=== PATIENT | male | born 1940 | race Hispanic/Latino ===

== ENCOUNTER → 2021-06-16 | Day surgery (SDC) | payer MEDICARE ==
[~2021-06-16] MED LIST: FENTANYL CITRATE/PF 100MCG/2 ML INJ ONE; LIDOCAINE HCL 1% 2 ML AMP ONE; MIDAZOLAM HCL 2 MG/2 ML VIAL ONE; MULTI-VITAMIN1 EACH PO; OR PHACO EYE KIT ONE; POVIDONE IODINE 5% (OPTH) 30 ML BTL ONE; PREOP PHACO EYE KIT ONE; TOBRAMYCIN/DEXAMETHASONE(OPTH) 3.5 GM TUBE ONE; VIAGRA50 MG PO; ZESTRIL10 MG PO
[2021-06-16 14:50] VITALS: BP 120/74
== END | disposition home or self-care (01) ==
LOC: OR 12:30
PROVIDERS: ATTEND Ophthalmology
DX: H25.11 Age-related nuclear cataract, right eye (principal); I10 Essential (primary) hypertension; K21.9 Gastro-esophageal reflux disease without esophagitis; Z79.899 Other long term (current) drug therapy
CPT/HCPCS: 66984; J2250; J3010; U0002; V2632; J2001

== ENCOUNTER → 2021-07-07 | Day surgery (SDC) | payer MEDICARE ==
[~2021-07-07] MED LIST changes: -FENTANYL CITRATE/PF 100MCG/2 ML INJ ONE; -LIDOCAINE HCL 1% 2 ML AMP ONE; -POVIDONE IODINE 5% (OPTH) 30 ML BTL ONE; -TOBRAMYCIN/DEXAMETHASONE(OPTH) 3.5 GM TUBE ONE
[2021-07-07 15:00] VITALS: BP 116/69
== END | disposition home or self-care (01) ==
LOC: OR 12:55
PROVIDERS: ATTEND Ophthalmology
DX: H25.12 Age-related nuclear cataract, left eye (principal); I10 Essential (primary) hypertension; K21.9 Gastro-esophageal reflux disease without esophagitis; Z01.812 Encounter for preprocedural laboratory examination; Z20.822 Contact with and (suspected) exposure to COVID-19; Z79.899 Other long term (current) drug therapy
CPT/HCPCS: 66984; J2250; U0002; V2632

== ENCOUNTER 2024-05-02 22:59 | Inpatient (IN) | payer MEDICARE ==
[~2024-05-02] VITALS: Ht 162.6 cm; Wt 70.3 kg
[~2024-05-02 22:59] MED LIST changes: -MIDAZOLAM HCL 2 MG/2 ML VIAL ONE; -OR PHACO EYE KIT ONE; -PREOP PHACO EYE KIT ONE
[2024-05-03] VITALS (9 sets, daily range): BP systolic 112–139; BP diastolic 68–91; PULSE 53–116; RESP 16–20; TEMP 98.2–100.4; O2SAT 92–100
[2024-05-03 00:22] LABS: BASOPHILS % 0.5 % (0.0-1.0); HEMATOCRIT 40.6 % (38.2-49.6); HEMOGLOBIN 14.3 g/dL (14.0-18.0); LYMPHOCYTES # (AUTO) 0.3 (1.0-3.2); LYMPHOCYTES % 3.5 % (18.0-39.1); MEAN CORPUSCULAR HEMOGLOBIN 33.6 pg (28-32); MEAN CORPUSCULAR HGB CONC 35.2 g/dL (31-35); MEAN CORPUSCULAR VOLUME 95.3 fL (81-99); MONOCYTES # (AUTO) 0.2 (0.2-0.8); MONOCYTES % 2.4 % (4.4-11.3); NEUTROPHILS # (AUTO) 7.7 (2.1-6.9); PLATELET COUNT 65 x10e3/uL (140-360); RED BLOOD COUNT 4.26 x10e6/uL (4.3-5.7); RED CELL DISTRIBUTION WIDTH 13.4 % (11.7-14.4); WHITE BLOOD COUNT 8.32 x10e3/uL (4.8-10.8)
[2024-05-03 00:36] LABS: ALANINE AMINOTRANSFERASE 110 IU/L (0-55); ALBUMIN 3.1 g/dL (3.5-5.0); ALBUMIN/GLOBULIN RATIO 0.8 (0.8-2.0); ALKALINE PHOSPHATASE 123 IU/L (40-150); ANION GAP 18.2 mmol/L (8-16); BILIRUBIN,TOTAL 1.8 mg/dL (0.2-1.2); BLOOD UREA NITROGEN 29 mg/dL (7-26); BUN/CREATININE RATIO 22 (6-25); CALCIUM 10.3 mg/dL (8.4-10.2); CARBON DIOXIDE 22 mmol/L (22-29); CHLORIDE 90 mmol/L (98-107); CREATINE KINASE 529 IU/L (30-200); EST GLOMERULAR FILTRATION RATE 55 ML/MIN (>=60); GLUCOSE 116 mg/dL (74-118); SODIUM 127 mmol/L (136-145); TOTAL PROTEIN 7.2 g/dL (6.5-8.1)
[2024-05-03 00:40] LABS: POTASSIUM 3.2 mmol/L (3.5-5.1)
[2024-05-03 01:05] LABS: TROPONIN I < 0.05 ng/mL (0.0-0.40)
[2024-05-03] MEDS ORDERED: ONDANSETRON HCL INJ 2MG/ML 2ML 2 MG/ML VIAL IV PRN ×2 (04:15→10:15)
[2024-05-03] MEDS: LIDOCAINE 1% W/EPINEPHRINE 20 ML VIAL INJ ONE (05:03)
[2024-05-03] MEDS: CEPHALEXIN 500 MG CAP PO SCH (05:09)
[2024-05-03] MEDS: SODIUM CHLORIDE 0.9% 1000ML 1,000 ML IV ONE (05:10)
[2024-05-03] MEDS ORDERED: IOPAMIDOL 370 MG/ML 100 ML INFUS..BTL INJ ONE (10:54)
[2024-05-03 10:56] LABS: TROPONIN I 1.072 ng/mL (0-0.300)
[2024-05-03 17:26] LABS: TROPONIN I 0.02 ng/mL (0-0.300)
[2024-05-04] VITALS (12 sets, daily range): BP systolic 77–133; BP diastolic 55–78; PULSE 91–126; RESP 16–20; TEMP 98.2–99.5; O2SAT 90–100
[2024-05-04 06:04] LABS: BASOPHILS # (AUTO) 0.1 (0.0-0.1); BASOPHILS % 1.2 % (0.0-1.0); HEMATOCRIT 40.2 % (38.2-49.6); HEMOGLOBIN 13.8 g/dL (14.0-18.0); LYMPHOCYTES # (AUTO) 0.3 (1.0-3.2); LYMPHOCYTES % 4.6 % (18.0-39.1); MEAN CORPUSCULAR HEMOGLOBIN 33.1 pg (28-32); MEAN CORPUSCULAR HGB CONC 34.3 g/dL (31-35); MEAN CORPUSCULAR VOLUME 96.4 fL (81-99); MONOCYTES # (AUTO) 0.2 (0.2-0.8); MONOCYTES % 2.3 % (4.4-11.3); NEUTROPHILS # (AUTO) 6.2 (2.1-6.9); RED BLOOD COUNT 4.17 x10e6/uL (4.3-5.7); RED CELL DISTRIBUTION WIDTH 13.5 % (11.7-14.4); WHITE BLOOD COUNT 6.81 x10e3/uL (4.8-10.8)
[2024-05-04 06:08] LABS: PLATELET COUNT 37 x10e3/uL (140-360)
[2024-05-04 06:47] LABS: ALBUMIN 2.4 g/dL (3.5-5.0); ALBUMIN/GLOBULIN RATIO 0.8 (0.8-2.0); ANION GAP 14.1 mmol/L (8-16); BILIRUBIN,TOTAL 2.3 mg/dL (0.2-1.2); CALCIUM 8.3 mg/dL (8.4-10.2); CREATININE, SERUM 0.78 mg/dL (0.72-1.25); TOTAL PROTEIN 5.5 g/dL (6.5-8.1)
[2024-05-04 06:53] LABS: POTASSIUM 3.1 mmol/L (3.5-5.1)
[2024-05-04 07:09] LABS: CHOL/HDL RATIO 5.8 (3.9-4.7)
[2024-05-04 07:16] LABS: TROPONIN I 0.035 ng/mL (0-0.300)
[2024-05-04] MEDS: TRAMADOL HCL 50 MG TAB PO SCH (09:00)
[2024-05-04 09:43] LABS: BAND NEUTROPHILS % (MANUAL) 11 %; BASOPHILS % (MANUAL) 1 % (0-1.5); LYMPHOCYTES % (MANUAL) 5 % (19-48); METAMYELOCYTES % (MANUAL) 1 % (0-0); MONOCYTES % (MANUAL) 1 % (3.4-9.0); MYELOCYTES % (MANUAL) 1 % (0-0); NEUTROPHILS % (MANUAL) 80 % (40-74); PLATELET ESTIMATE MARKEDLY DECREASED; PLATELET MORPHOLOGY COMMENT NORMAL; RBC MORPHOLOGY COMMENT NORMAL
[2024-05-04] MEDS: ACETAMINOPHEN 325 MG TAB PO PRN (09:43)
[2024-05-04] MEDS: MULTIVITAMINS- 12 INJECTION 10 ML, FOLIC ACID MDV 1 MG, THIAMINE HCL INJ 100 MG in SODI... IV SCH (11:13)
[2024-05-04] MEDS: POTASSIUM CHLORIDE 10MEQ EA PO SCH (11:14)
[2024-05-04] MEDS: CHLORDIAZEPOXIDE HCL 10 MG CAP PO SCH (13:45)
[2024-05-04] MEDS: SODIUM CHLORIDE 0.9% 500ML 500 ML IV ONE (15:22)
[2024-05-04] MEDS: MIDODRINE HCL 5 MG TABLET PO SCH (16:48)
[2024-05-04] MEDS: SODIUM CHLORIDE 452MG TAB PO SCH (16:48)
[2024-05-04] MEDS: LORAZEPAM INJ 2 MG/ML VIAL IV ONE (18:42)
[2024-05-04] MEDS: FAMOTIDINE 20 MG/2 ML VIAL IV SCH (18:43)
[2024-05-04] MEDS: CHLORDIAZEPOXIDE HCL 10 MG CAP PO PRN (21:35)
[2024-05-05] VITALS (9 sets, daily range): BP systolic 72–112; BP diastolic 54–78; PULSE 96–122; RESP 18–24; TEMP 98.3–99.8; O2SAT 94–96
[2024-05-05] MEDS: LORAZEPAM INJ 2 MG/ML VIAL IV PRN (04:10)
[2024-05-05 08:09] LABS: BASOPHILS % 0.3 % (0.0-1.0); EOSINOPHILS % 0.2 % (0.0-6.0); HEMATOCRIT 44.3 % (38.2-49.6); HEMOGLOBIN 14.8 g/dL (14.0-18.0); LYMPHOCYTES # (AUTO) 0.5 (1.0-3.2); LYMPHOCYTES % 5.4 % (18.0-39.1); MEAN CORPUSCULAR HEMOGLOBIN 32.7 pg (28-32); MEAN CORPUSCULAR HGB CONC 33.4 g/dL (31-35); MEAN CORPUSCULAR VOLUME 97.8 fL (81-99); MONOCYTES # (AUTO) 0.2 (0.2-0.8); NEUTROPHILS # (AUTO) 8.1 (2.1-6.9); NEUTROPHILS % 90.8 % (38.7-80.0); RED BLOOD COUNT 4.53 x10e6/uL (4.3-5.7); RED CELL DISTRIBUTION WIDTH 14.4 % (11.7-14.4)
[2024-05-05 08:22] LABS: PLATELET COUNT 27 x10e3/uL (140-360)
[2024-05-05 08:23] LABS: INR 1.19; PROTHROMBIN TIME 15.7 seconds (11.9-14.5)
[2024-05-05 08:28] LABS: ALBUMIN 2.2 g/dL (3.5-5.0); ALBUMIN/GLOBULIN RATIO 0.7 (0.8-2.0); ANION GAP 13.1 mmol/L (8-16); BILIRUBIN,TOTAL 2.9 mg/dL (0.2-1.2); CALCIUM 8.1 mg/dL (8.4-10.2); CREATININE, SERUM 1.14 mg/dL (0.72-1.25); POTASSIUM 4.1 mmol/L (3.5-5.1); TOTAL PROTEIN 5.4 g/dL (6.5-8.1)
[2024-05-05] MEDS: THIAMINE HCL INJ 100 MG/ML 2ML VIAL IV SCH (08:57)
[2024-05-05 10:32] LABS: BAND NEUTROPHILS % (MANUAL) 5 %; LYMPHOCYTES % (MANUAL) 7 % (19-48); NEUTROPHILS % (MANUAL) 87 % (40-74); REACTIVE LYMPHOCYTES 1
[2024-05-05 10:33] LABS: PLATELET ESTIMATE MARKEDLY DECREASED; PLATELET MORPHOLOGY COMMENT NORMAL
[2024-05-05] MEDS: MIDODRINE HCL 5 MG TABLET PO SCH (11:23)
[2024-05-06] VITALS (11 sets, daily range): BP systolic 92–116; BP diastolic 59–95; PULSE 95–138; RESP 18–22; TEMP 98–99.5; O2SAT 94–100
[2024-05-06 06:21] LABS: BASOPHILS # (AUTO) 0.1 (0.0-0.1); BASOPHILS % 0.7 % (0.0-1.0); EOSINOPHILS % 0.2 % (0.0-6.0); HEMATOCRIT 42.9 % (38.2-49.6); HEMOGLOBIN 14.7 g/dL (14.0-18.0); LYMPHOCYTES # (AUTO) 0.8 (1.0-3.2); LYMPHOCYTES % 7.4 % (18.0-39.1); MEAN CORPUSCULAR HEMOGLOBIN 33.1 pg (28-32); MEAN CORPUSCULAR HGB CONC 34.3 g/dL (31-35); MEAN CORPUSCULAR VOLUME 96.6 fL (81-99); MONOCYTES # (AUTO) 0.2 (0.2-0.8); MONOCYTES % 2.2 % (4.4-11.3); NEUTROPHILS # (AUTO) 8.9 (2.1-6.9); NEUTROPHILS % 88.6 % (38.7-80.0); RED BLOOD COUNT 4.44 x10e6/uL (4.3-5.7); RED CELL DISTRIBUTION WIDTH 14.6 % (11.7-14.4); WHITE BLOOD COUNT 10.09 x10e3/uL (4.8-10.8)
[2024-05-06 06:25] LABS: PLATELET COUNT 25 x10e3/uL (140-360)
[2024-05-06 06:35] LABS: ALBUMIN/GLOBULIN RATIO 0.6 (0.8-2.0); ANION GAP 15.2 mmol/L (8-16); BILIRUBIN,TOTAL 3.4 mg/dL (0.2-1.2); CALCIUM 7.7 mg/dL (8.4-10.2); POTASSIUM 4.2 mmol/L (3.5-5.1); TOTAL PROTEIN 5.1 g/dL (6.5-8.1)
[2024-05-06 07:04] LABS: CREATININE, SERUM 1.98 mg/dL (0.72-1.25)
[2024-05-06] MEDS: LACTULOSE SYRUP 20 GM/30 ML UDC PO SCH (09:19)
[2024-05-06 10:39] LABS: BAND NEUTROPHILS % (MANUAL) 9 %; LYMPHOCYTES % (MANUAL) 4 % (19-48); MONOCYTES % (MANUAL) 1 % (3.4-9.0); NEUTROPHILS % (MANUAL) 84 % (40-74); PLATELET ESTIMATE MARKEDLY DECREASED; PLATELET MORPHOLOGY COMMENT NORMAL; REACTIVE LYMPHOCYTES 2
[2024-05-06 10:40] LABS: ANISOCYTOSIS SLIGHT
[2024-05-06] MEDS: ENOXAPARIN SOD INJ 40 MG/0.4 ML SYR SC SCH (17:06)
[2024-05-06] MEDS ORDERED: SODIUM CHLORIDE 0.9% 1000ML 1,000 ML IV SCH (19:30)
[2024-05-06] MEDS: SODIUM CHLORIDE 0.9% 1000ML 1,000 ML IV SCH (20:59)
[2024-05-07] VITALS (9 sets, daily range): BP systolic 93–118; BP diastolic 58–91; PULSE 97–136; RESP 18–22; TEMP 97.7–99; O2SAT 91–99
[2024-05-07 06:45] LABS: BASOPHILS # (AUTO) 0.1 (0.0-0.1); BASOPHILS % 0.6 % (0.0-1.0); EOSINOPHILS % 0.2 % (0.0-6.0); HEMATOCRIT 41.9 % (38.2-49.6); HEMOGLOBIN 14.4 g/dL (14.0-18.0); LYMPHOCYTES # (AUTO) 1.2 (1.0-3.2); MEAN CORPUSCULAR HEMOGLOBIN 33.3 pg (28-32); MEAN CORPUSCULAR HGB CONC 34.4 g/dL (31-35); MONOCYTES # (AUTO) 0.3 (0.2-0.8); MONOCYTES % 2.4 % (4.4-11.3); NEUTROPHILS % 84.9 % (38.7-80.0); RED BLOOD COUNT 4.32 x10e6/uL (4.3-5.7); RED CELL DISTRIBUTION WIDTH 15.6 % (11.7-14.4); WHITE BLOOD COUNT 10.58 x10e3/uL (4.8-10.8)
[2024-05-07 06:53] LABS: ALBUMIN 1.6 g/dL (3.5-5.0); ALBUMIN/GLOBULIN RATIO 0.6 (0.8-2.0); ANION GAP 16.3 mmol/L (8-16); BILIRUBIN,TOTAL 3.9 mg/dL (0.2-1.2); CALCIUM 7.4 mg/dL (8.4-10.2); CREATININE, SERUM 2.99 mg/dL (0.72-1.25); PLATELET COUNT 28 x10e3/uL (140-360); POTASSIUM 4.3 mmol/L (3.5-5.1); TOTAL PROTEIN 4.3 g/dL (6.5-8.1)
[2024-05-07 08:58] LABS: BAND NEUTROPHILS % (MANUAL) 3 %; LYMPHOCYTES % (MANUAL) 6 % (19-48); MONOCYTES % (MANUAL) 2 % (3.4-9.0); NEUTROPHILS % (MANUAL) 89 % (40-74)
[2024-05-07 09:00] LABS: PLATELET ESTIMATE MARKEDLY DECREASED; PLATELET MORPHOLOGY COMMENT NORMAL; RBC MORPHOLOGY COMMENT NORMAL
[2024-05-07] MEDS: RIFAXIMIN 550 MG TABLET PO SCH (09:00)
[2024-05-07 09:56] LABS: HEPATITIS B SURFACE AG (P) Negative; HEPATITIS C ANTIBODY Non Reactive
[2024-05-07] MEDS: DEXTROSE 5%/0.9% SOD CHL 1,000 ML IV SCH (12:32)
[2024-05-07 13:24] LABS: BILIRUBIN,URINE SMALL (NEGATIVE); CLARITY,URINE CLOUDY (CLEAR); COLOR,URINE AMBER (YELLOW); GLUCOSE, URINE NEGATIVE (NEGATIVE); KETONES,URINE NEGATIVE (NEGATIVE); LEUKOCYTE ESTERASE ,URINE NEGATIVE (NEGATIVE); NITRITE,URINE NEGATIVE (NEGATIVE); PH,URINE 5.5 (5 - 7); PROTEIN,URINE DIPSTICK 2+ (NEGATIVE); URINE UROBILINOGEN 0.2 mg/dL (0.2 - 1)
[2024-05-07 13:26] LABS: BACTERIA,URINE MANY /HPF; EPITHELIAL CELLS,URINE MODERATE /LPF
[2024-05-07 13:27] LABS: WBC,URINE (MAN) 0-5 /HPF (0-5)
[2024-05-07 14:38] LABS: CREATININE,URINE RANDOM 102.55 mg/dL (63-166); TOTAL PROTEIN, URINE 57.1 mg/dL (1-14)
[2024-05-07 14:40] LABS: SODIUM,URINE < 20 mmol/L
[2024-05-07 17:33] LABS: ABG PCO2 24 mmHg (35-45); ABG PH 7.35 (7.35-7.45)
[2024-05-07 17:34] LABS: ABG HCO3 14 mmol/L (22-26); ABG PO2 77 mmHg (80-105); ABG TCO2 14
[2024-05-07] MEDS ORDERED: SODIUM BICARBONATE 8.4% VIAL 50 ML in DEXTROSE 5%/0.45% SOD CHL 1,000 ML IV SCH (18:30)
[2024-05-07] MEDS: SODIUM BICARBONATE 8.4% VIAL 50 ML in DEXTROSE 5%/0.45% SOD CHL 1,000 ML IV SCH (21:18)
[2024-05-08] VITALS (9 sets, daily range): BP systolic 89–124; BP diastolic 50–78; PULSE 106–118; RESP 15–22; TEMP 97.4–98.7; O2SAT 93–96
[2024-05-08 06:27] LABS: BASOPHILS # (AUTO) 0.1 (0.0-0.1); BASOPHILS % 0.8 % (0.0-1.0); EOSINOPHILS % 0.3 % (0.0-6.0); HEMATOCRIT 40.8 % (38.2-49.6); HEMOGLOBIN 14.1 g/dL (14.0-18.0); LYMPHOCYTES % 16.3 % (18.0-39.1); MEAN CORPUSCULAR HEMOGLOBIN 33.2 pg (28-32); MEAN CORPUSCULAR HGB CONC 34.6 g/dL (31-35); MONOCYTES # (AUTO) 0.3 (0.2-0.8); MONOCYTES % 2.8 % (4.4-11.3); NEUTROPHILS # (AUTO) 9.4 (2.1-6.9); NEUTROPHILS % 78.4 % (38.7-80.0); PLATELET COUNT 33 x10e3/uL (140-360); RED BLOOD COUNT 4.25 x10e6/uL (4.3-5.7); RED CELL DISTRIBUTION WIDTH 16.5 % (11.7-14.4)
[2024-05-08 07:05] LABS: ALBUMIN 1.7 g/dL (3.5-5.0); ALBUMIN/GLOBULIN RATIO 0.6 (0.8-2.0); ANION GAP 15.2 mmol/L (8-16); BILIRUBIN,TOTAL 3.7 mg/dL (0.2-1.2); CALCIUM 7.5 mg/dL (8.4-10.2); CREATININE, SERUM 3.66 mg/dL (0.72-1.25); POTASSIUM 4.2 mmol/L (3.5-5.1); TOTAL PROTEIN 4.6 g/dL (6.5-8.1)
[2024-05-08 09:03] LABS: LYMPHOCYTES % (MANUAL) 10 % (19-48); MONOCYTES % (MANUAL) 1 % (3.4-9.0); NEUTROPHILS % (MANUAL) 89 % (40-74)
[2024-05-08 09:08] LABS: PLATELET ESTIMATE MARKEDLY DECREASED; PLATELET MORPHOLOGY COMMENT FEW LARGE
[2024-05-08 09:09] LABS: RBC MORPHOLOGY COMMENT NORMAL
[2024-05-08] MEDS: OCTREOTIDE ACETATE 500 MCG/ML VIAL SQ SCH (18:01)
[2024-05-08] MEDS: MIDODRINE HCL 5 MG TABLET PO SCH (18:05)
[2024-05-08] MEDS: SODIUM BICARBONATE 8.4% VIAL 50 ML in DEXTROSE 5%/0.45% SOD CHL 1,000 ML IV SCH (22:27)
[2024-05-09] VITALS (12 sets, daily range): BP systolic 99–139; BP diastolic 65–85; PULSE 90–122; RESP 16–22; TEMP 97.6–100.5; O2SAT 93–98
[2024-05-09 06:04] LABS: BASOPHILS # (AUTO) 0.1 (0.0-0.1); BASOPHILS % 0.5 % (0.0-1.0); EOSINOPHILS # (AUTO) 0.1 (0.0-0.4); EOSINOPHILS % 0.7 % (0.0-6.0); HEMATOCRIT 37.5 % (38.2-49.6); LYMPHOCYTES % 19.1 % (18.0-39.1); MEAN CORPUSCULAR HEMOGLOBIN 32.7 pg (28-32); MEAN CORPUSCULAR HGB CONC 34.7 g/dL (31-35); MEAN CORPUSCULAR VOLUME 94.5 fL (81-99); MONOCYTES # (AUTO) 0.3 (0.2-0.8); MONOCYTES % 2.5 % (4.4-11.3); NEUTROPHILS # (AUTO) 7.9 (2.1-6.9); RED BLOOD COUNT 3.97 x10e6/uL (4.3-5.7); RED CELL DISTRIBUTION WIDTH 16.1 % (11.7-14.4); WHITE BLOOD COUNT 10.45 x10e3/uL (4.8-10.8)
[2024-05-09 06:13] LABS: PLATELET COUNT 37 x10e3/uL (140-360)
[2024-05-09 06:27] LABS: ALBUMIN 1.8 g/dL (3.5-5.0); ALBUMIN/GLOBULIN RATIO 0.6 (0.8-2.0); ANION GAP 16.4 mmol/L (8-16); BILIRUBIN,TOTAL 4.1 mg/dL (0.2-1.2); CALCIUM 7.7 mg/dL (8.4-10.2); CREATININE, SERUM 4.48 mg/dL (0.72-1.25); POTASSIUM 4.4 mmol/L (3.5-5.1); TOTAL PROTEIN 4.9 g/dL (6.5-8.1)
[2024-05-09] MEDS ORDERED: CHLORDIAZEPOXIDE HCL 10 MG CAP PO PRN (08:00)
[2024-05-09 08:36] LABS: LYMPHOCYTES % (MANUAL) 2 % (19-48); MONOCYTES % (MANUAL) 1 % (3.4-9.0); NEUTROPHILS % (MANUAL) 97 % (40-74); PLATELET ESTIMATE MARKEDLY DECREASED; PLATELET MORPHOLOGY COMMENT NORMAL; RBC MORPHOLOGY COMMENT NORMAL
[2024-05-09] MEDS ORDERED: HEPARIN SOD (PORCINE) 1000 UNIT/ML SDV ONE (10:17)
[2024-05-09] MEDS ORDERED: DEXTROSE 5%/0.45% SOD CHL 1,000 ML IV ONE (11:40)
[2024-05-09] MEDS: SODIUM CHLORIDE 0.9% 1000ML 0 ML ONE (15:35)
[2024-05-09] MEDS ORDERED: MANNITOL 25% 12.5GM/50 ML VIAL IV PRN (15:45)
[2024-05-09] MEDS ORDERED: SODIUM CHLORIDE 0.9% 1000ML 2,000 ML IV PRN (15:45)
[2024-05-09] MEDS ORDERED: HEPARIN SOD (PORCINE) 1000 UNIT/ML SDV IV PRN (15:45)
[2024-05-10] VITALS (9 sets, daily range): BP systolic 107–135; BP diastolic 59–88; PULSE 92–113; RESP 16–21; TEMP 97.9–99.5; O2SAT 93–100
[2024-05-10 06:13] LABS: BASOPHILS % 0.5 % (0.0-1.0); EOSINOPHILS # (AUTO) 0.1 (0.0-0.4); EOSINOPHILS % 0.7 % (0.0-6.0); HEMATOCRIT 34.7 % (38.2-49.6); HEMOGLOBIN 11.8 g/dL (14.0-18.0); LYMPHOCYTES # (AUTO) 1.7 (1.0-3.2); MEAN CORPUSCULAR HEMOGLOBIN 32.7 pg (28-32); MEAN CORPUSCULAR VOLUME 96.1 fL (81-99); MONOCYTES # (AUTO) 0.3 (0.2-0.8); MONOCYTES % 3.3 % (4.4-11.3); NEUTROPHILS # (AUTO) 6.4 (2.1-6.9); NEUTROPHILS % 74.6 % (38.7-80.0); RED BLOOD COUNT 3.61 x10e6/uL (4.3-5.7); RED CELL DISTRIBUTION WIDTH 16.5 % (11.7-14.4)
[2024-05-10 06:30] LABS: PLATELET COUNT 44 x10e3/uL (140-360)
[2024-05-10 06:36] LABS: ANION GAP 13.3 mmol/L (8-16); CALCIUM 7.7 mg/dL (8.4-10.2); CREATININE, SERUM 3.6 mg/dL (0.72-1.25); POTASSIUM 4.3 mmol/L (3.5-5.1)
[2024-05-10 09:40] LABS: LYMPHOCYTES % (MANUAL) 17 % (19-48); MONOCYTES % (MANUAL) 3 % (3.4-9.0); NEUTROPHILS % (MANUAL) 80 % (40-74); PLATELET ESTIMATE MARKEDLY DECREASED; PLATELET MORPHOLOGY COMMENT NORMAL; RBC MORPHOLOGY COMMENT NORMAL
[2024-05-10] MEDS: TRAMADOL HCL 50 MG TAB PO PRN (10:22)
[2024-05-10] MEDS ORDERED: HEPARIN SOD (PORCINE) 1000 UNIT/ML SDV IV PRN (15:15)
[2024-05-10] MEDS ORDERED: SODIUM CHLORIDE 0.9% 1000ML 2,000 ML IV PRN (15:15)
[2024-05-10] MEDS: DEXTROSE 5%/0.9% SOD CHL 1,000 ML IV ONE (18:38)
[2024-05-11] VITALS (11 sets, daily range): BP systolic 110–142; BP diastolic 67–97; PULSE 82–95; RESP 16–20; TEMP 97.9–99.5; O2SAT 95–100
[2024-05-11 06:06] LABS: BASOPHILS % 0.5 % (0.0-1.0); EOSINOPHILS # (AUTO) 0.1 (0.0-0.4); EOSINOPHILS % 1.1 % (0.0-6.0); HEMOGLOBIN 11.2 g/dL (14.0-18.0); LYMPHOCYTES # (AUTO) 1.8 (1.0-3.2); LYMPHOCYTES % 21.6 % (18.0-39.1); MEAN CORPUSCULAR HEMOGLOBIN 32.9 pg (28-32); MEAN CORPUSCULAR HGB CONC 33.9 g/dL (31-35); MEAN CORPUSCULAR VOLUME 97.1 fL (81-99); MONOCYTES # (AUTO) 0.2 (0.2-0.8); MONOCYTES % 2.7 % (4.4-11.3); NEUTROPHILS % 73.2 % (38.7-80.0); RED CELL DISTRIBUTION WIDTH 16.7 % (11.7-14.4); WHITE BLOOD COUNT 8.15 x10e3/uL (4.8-10.8)
[2024-05-11 06:15] LABS: PLATELET COUNT 48 x10e3/uL (140-360)
[2024-05-11 06:48] LABS: ALBUMIN 1.6 g/dL (3.5-5.0); ALBUMIN/GLOBULIN RATIO 0.5 (0.8-2.0); BILIRUBIN,TOTAL 4.2 mg/dL (0.2-1.2); CALCIUM 7.9 mg/dL (8.4-10.2); CREATININE, SERUM 2.37 mg/dL (0.72-1.25); TOTAL PROTEIN 4.6 g/dL (6.5-8.1)
[2024-05-11 08:18] LABS: BAND NEUTROPHILS % (MANUAL) 2 %; MONOCYTES % (MANUAL) 1 % (3.4-9.0); NEUTROPHILS % (MANUAL) 97 % (40-74)
[2024-05-11 08:19] LABS: PLATELET ESTIMATE MARKEDLY DECREASED; PLATELET MORPHOLOGY COMMENT NORMAL; RBC MORPHOLOGY COMMENT NORMAL
[2024-05-11] MEDS ORDERED: HEPARIN 25,000 UNIT/D5W 250ML 25,000 UNIT in DEXTROSE 5% 250ML 250 ML IV SCH (11:45)
[2024-05-11] MEDS ORDERED: HEPARIN SOD/DEXTROSE 5% 25000 UNIT/250 ML BAG IV SCH (12:15)
[2024-05-11 12:54] LABS: INR 1.34; PROTHROMBIN TIME 17.3 seconds (11.9-14.5)
[2024-05-11] MEDS: MUPIROCIN 2% OINT 22 GM TUBE TOP SCH (13:56)
[2024-05-11] MEDS: HEPARIN SOD (PORCINE) 1000 UNIT/ML SDV IV ONE (14:18)
[2024-05-11] MEDS: HEPARIN 25,000 UNIT/D5W 250ML 250 ML IV SCH (14:21)
[2024-05-11] MEDS ORDERED: BISACODYL 5 MG TAB EC PO ONE ×2 (18:15→18:45)
[2024-05-11] MEDS ORDERED: CITRATE OF MAGNESIA 300ML BOTTLE PO ONE (23:00)
[2024-05-12] VITALS (8 sets, daily range): BP systolic 123–144; BP diastolic 79–97; PULSE 78–106; RESP 16–20; TEMP 97.8–98.6; O2SAT 95–100
[2024-05-12] MEDS ORDERED: CITRATE OF MAGNESIA 300ML BOTTLE PO ONE (05:00)
[2024-05-12] MEDS: HEPARIN 25,000 UNIT/D5W 250ML 250 ML IV SCH (06:33)
[2024-05-12 06:58] LABS: BASOPHILS % 0.4 % (0.0-1.0); EOSINOPHILS # (AUTO) 0.1 (0.0-0.4); EOSINOPHILS % 0.6 % (0.0-6.0); HEMOGLOBIN 10.4 g/dL (14.0-18.0); LYMPHOCYTES % 24.5 % (18.0-39.1); MEAN CORPUSCULAR HEMOGLOBIN 33.1 pg (28-32); MEAN CORPUSCULAR HGB CONC 34.7 g/dL (31-35); MEAN CORPUSCULAR VOLUME 95.5 fL (81-99); MONOCYTES # (AUTO) 0.4 (0.2-0.8); MONOCYTES % 4.8 % (4.4-11.3); NEUTROPHILS # (AUTO) 5.7 (2.1-6.9); NEUTROPHILS % 69.1 % (38.7-80.0); PLATELET COUNT 62 x10e3/uL (140-360); RED BLOOD COUNT 3.14 x10e6/uL (4.3-5.7); RED CELL DISTRIBUTION WIDTH 16.6 % (11.7-14.4); WHITE BLOOD COUNT 8.17 x10e3/uL (4.8-10.8)
[2024-05-12 07:48] LABS: ANION GAP 11.7 mmol/L (8-16); CALCIUM 7.7 mg/dL (8.4-10.2); CREATININE, SERUM 2.68 mg/dL (0.72-1.25); POTASSIUM 3.7 mmol/L (3.5-5.1)
[2024-05-12 09:05] LABS: BAND NEUTROPHILS % (MANUAL) 1 %; BASOPHILS % (MANUAL) 1 % (0-1.5); EOSINOPHILS % (MANUAL) 1 % (0-7); LYMPHOCYTES % (MANUAL) 12 % (19-48); MONOCYTES % (MANUAL) 4 % (3.4-9.0); NEUTROPHILS % (MANUAL) 81 % (40-74); PLATELET ESTIMATE MODERATELY DECREASED; PLATELET MORPHOLOGY COMMENT NORMAL; RBC MORPHOLOGY COMMENT NORMAL
[2024-05-13] VITALS (9 sets, daily range): BP systolic 128–162; BP diastolic 75–87; PULSE 78–92; RESP 16–20; TEMP 97.8–99.2; O2SAT 92–100
[2024-05-13 06:03] LABS: BASOPHILS % 0.3 % (0.0-1.0); EOSINOPHILS % 0.4 % (0.0-6.0); HEMATOCRIT 35.5 % (38.2-49.6); HEMOGLOBIN 11.9 g/dL (14.0-18.0); LYMPHOCYTES % 26.4 % (18.0-39.1); MEAN CORPUSCULAR HEMOGLOBIN 32.2 pg (28-32); MEAN CORPUSCULAR HGB CONC 33.5 g/dL (31-35); MEAN CORPUSCULAR VOLUME 95.9 fL (81-99); MONOCYTES # (AUTO) 0.4 (0.2-0.8); PLATELET COUNT 74 x10e3/uL (140-360); RED CELL DISTRIBUTION WIDTH 16.2 % (11.7-14.4); WHITE BLOOD COUNT 7.43 x10e3/uL (4.8-10.8)
[2024-05-13 14:10] LABS: ANION GAP 12.7 mmol/L (8-16); CALCIUM 8.3 mg/dL (8.4-10.2); CREATININE, SERUM 1.8 mg/dL (0.72-1.25); POTASSIUM 3.7 mmol/L (3.5-5.1)
[2024-05-14] VITALS (11 sets, daily range): BP systolic 116–150; BP diastolic 68–94; PULSE 73–97; RESP 16–19; TEMP 97.8–99; O2SAT 95–100
[2024-05-14 06:01] LABS: BASOPHILS % 0.4 % (0.0-1.0); EOSINOPHILS % 0.3 % (0.0-6.0); HEMATOCRIT 32.2 % (38.2-49.6); HEMOGLOBIN 10.8 g/dL (14.0-18.0); LYMPHOCYTES # (AUTO) 2.3 (1.0-3.2); LYMPHOCYTES % 29.8 % (18.0-39.1); MEAN CORPUSCULAR HGB CONC 33.5 g/dL (31-35); MEAN CORPUSCULAR VOLUME 95.5 fL (81-99); MONOCYTES # (AUTO) 0.5 (0.2-0.8); MONOCYTES % 6.3 % (4.4-11.3); NEUTROPHILS # (AUTO) 4.7 (2.1-6.9); NEUTROPHILS % 62.4 % (38.7-80.0); PLATELET COUNT 88 x10e3/uL (140-360); RED BLOOD COUNT 3.37 x10e6/uL (4.3-5.7); RED CELL DISTRIBUTION WIDTH 16.3 % (11.7-14.4); WHITE BLOOD COUNT 7.58 x10e3/uL (4.8-10.8)
[2024-05-14 06:09] LABS: ALBUMIN 1.7 g/dL (3.5-5.0); ALBUMIN/GLOBULIN RATIO 0.4 (0.8-2.0); ANION GAP 15.1 mmol/L (8-16); BILIRUBIN,TOTAL 4.7 mg/dL (0.2-1.2); CALCIUM 8.1 mg/dL (8.4-10.2); CREATININE, SERUM 1.99 mg/dL (0.72-1.25)
[2024-05-14 06:17] LABS: POTASSIUM 3.1 mmol/L (3.5-5.1)
[2024-05-14 08:19] LABS: EOSINOPHILS % (MANUAL) 1 % (0-7); LYMPHOCYTES % (MANUAL) 16 % (19-48); MONOCYTES % (MANUAL) 4 % (3.4-9.0); NEUTROPHILS % (MANUAL) 77 % (40-74); REACTIVE LYMPHOCYTES 2
[2024-05-14 08:20] LABS: PLATELET ESTIMATE MODERATELY DECREASED; PLATELET MORPHOLOGY COMMENT NORMAL; RBC MORPHOLOGY COMMENT NORMAL
[2024-05-14] MEDS ORDERED: SODIUM CHLORIDE 0.9% 100 ML ONE (09:45)
[2024-05-14] MEDS ORDERED: IOPAMIDOL 370 MG/ML 100 ML INFUS..BTL INJ ONE (09:46)
[2024-05-14] MEDS: POTASSIUM CHLORIDE 10MEQ EA PO SCH (10:00)
[2024-05-14] MEDS: SODIUM CHLORIDE 0.9% 1000ML 1,000 ML IV SCH (12:06)
[2024-05-14] MEDS: CHLORDIAZEPOXIDE HCL 10 MG CAP PO PRN (12:26)
[2024-05-14] MEDS: LORAZEPAM INJ 2 MG/ML VIAL IV PRN (22:42)
[2024-05-15] VITALS (10 sets, daily range): BP systolic 117–136; BP diastolic 68–82; PULSE 81–100; RESP 18–20; TEMP 97.8–98.6; O2SAT 95–100
[2024-05-15 06:39] LABS: BASOPHILS % 0.7 % (0.0-1.0); EOSINOPHILS % 0.7 % (0.0-6.0); HEMATOCRIT 26.5 % (38.2-49.6); LYMPHOCYTES # (AUTO) 1.8 (1.0-3.2); MEAN CORPUSCULAR HEMOGLOBIN 32.7 pg (28-32); MEAN CORPUSCULAR VOLUME 96.4 fL (81-99); MONOCYTES # (AUTO) 0.5 (0.2-0.8); MONOCYTES % 7.4 % (4.4-11.3); NEUTROPHILS # (AUTO) 3.7 (2.1-6.9); NEUTROPHILS % 60.7 % (38.7-80.0); PLATELET COUNT 98 x10e3/uL (140-360); RED BLOOD COUNT 2.75 x10e6/uL (4.3-5.7); RED CELL DISTRIBUTION WIDTH 16.9 % (11.7-14.4); WHITE BLOOD COUNT 6.06 x10e3/uL (4.8-10.8)
[2024-05-15 07:01] LABS: ANION GAP 11.9 mmol/L (8-16); CALCIUM 7.7 mg/dL (8.4-10.2); CREATININE, SERUM 1.39 mg/dL (0.72-1.25)
[2024-05-15 07:02] LABS: POTASSIUM 2.9 mmol/L (3.5-5.1)
[2024-05-15] MEDS ORDERED: Morphine 2mg Syringe 2 MG/ML SYR IV PRN (09:30)
[2024-05-15] MEDS: POTASSIUM CHLORIDE 20MEQ/100ML 100 ML IV STA (09:49)
[2024-05-15] MEDS: LORAZEPAM INJ 2 MG/ML VIAL IV PRN (16:42)
[2024-05-16] VITALS (9 sets, daily range): BP systolic 115–147; BP diastolic 71–93; PULSE 81–103; RESP 18–20; TEMP 97.5–98.6; O2SAT 92–100
[2024-05-16 06:19] LABS: BASOPHILS % 0.6 % (0.0-1.0); EOSINOPHILS % 0.5 % (0.0-6.0); HEMATOCRIT 29.4 % (38.2-49.6); HEMOGLOBIN 9.7 g/dL (14.0-18.0); LYMPHOCYTES # (AUTO) 1.8 (1.0-3.2); LYMPHOCYTES % 28.9 % (18.0-39.1); MEAN CORPUSCULAR HEMOGLOBIN 32.3 pg (28-32); MONOCYTES # (AUTO) 0.5 (0.2-0.8); MONOCYTES % 7.1 % (4.4-11.3); NEUTROPHILS % 62.3 % (38.7-80.0); PLATELET COUNT 123 x10e3/uL (140-360); WHITE BLOOD COUNT 6.34 x10e3/uL (4.8-10.8)
[2024-05-16 06:51] LABS: CALCIUM 8.2 mg/dL (8.4-10.2); CREATININE, SERUM 1.67 mg/dL (0.72-1.25)
[2024-05-16] MEDS: POTASSIUM CHLORIDE 20MEQ/100ML 100 ML IV SCH (17:19)
[2024-05-17] VITALS: BP 131/85; PULSE 87; RESP 17; TEMP 97.7; O2SAT 100
[2024-05-17 02:13] VITALS: PULSE 85; RESP 20; O2SAT 95
[2024-05-17 04:00] VITALS: BP 118/80; PULSE 86; RESP 20; TEMP 97.7; O2SAT 100
[2024-05-17 05:42] LABS: cANCA TITER <1:20
[2024-05-17 05:43] LABS: ATYPICAL pANCA TITER <1:20; pANCA TITER <1:20
[2024-05-17 05:45] LABS: COMPLEMENT C3 71
[2024-05-17 05:46] LABS: COMPLEMENT C4 14
[2024-05-17 05:47] LABS: ANTI DNA DS ANTIBODY <1
[2024-05-17 06:17] LABS: BASOPHILS % 0.2 % (0.0-1.0); EOSINOPHILS # (AUTO) 0.1 (0.0-0.4); EOSINOPHILS % 1.2 % (0.0-6.0); HEMATOCRIT 27.2 % (38.2-49.6); HEMOGLOBIN 8.6 g/dL (14.0-18.0); LYMPHOCYTES # (AUTO) 1.8 (1.0-3.2); LYMPHOCYTES % 32.2 % (18.0-39.1); MEAN CORPUSCULAR HEMOGLOBIN 32.1 pg (28-32); MEAN CORPUSCULAR HGB CONC 31.6 g/dL (31-35); MEAN CORPUSCULAR VOLUME 101.5 fL (81-99); MONOCYTES # (AUTO) 0.4 (0.2-0.8); MONOCYTES % 7.7 % (4.4-11.3); NEUTROPHILS # (AUTO) 3.3 (2.1-6.9); NEUTROPHILS % 58.2 % (38.7-80.0); PLATELET COUNT 119 x10e3/uL (140-360); RED BLOOD COUNT 2.68 x10e6/uL (4.3-5.7); RED CELL DISTRIBUTION WIDTH 17.6 % (11.7-14.4); WHITE BLOOD COUNT 5.69 x10e3/uL (4.8-10.8)
[2024-05-17 07:55] VITALS: PULSE 82; RESP 20; O2SAT 96
[2024-05-17 09:05] LABS: BASOPHILS % (MANUAL) 1 % (0-1.5); EOSINOPHILS % (MANUAL) 1 % (0-7); LYMPHOCYTES % (MANUAL) 15 % (19-48); MONOCYTES % (MANUAL) 6 % (3.4-9.0); NEUTROPHILS % (MANUAL) 68 % (40-74); PLATELET ESTIMATE SLIGHTLY DECREASED; PLATELET MORPHOLOGY COMMENT NORMAL; RBC MORPHOLOGY COMMENT NORMAL; REACTIVE LYMPHOCYTES 9
[2024-05-17 13:35] VITALS: BP 129/85; PULSE 87; RESP 16; TEMP 97.3; O2SAT 97
[2024-05-17 13:58] VITALS: PULSE 84; RESP 20; O2SAT 97
== END 2024-05-17 16:40 | disposition hospice, home (50) | DRG 432 ==
LOC: ER 23:13 → ERHOLD 05-03 04:11 → MED/SURG3 05-03 05:31 → OBSVTOIN 05-03 10:27
PROVIDERS: ADMIT Internal Medicine; ATTEND Internal Medicine
PROC: 0HQ0XZZ Repair Scalp Skin, External Approach (ICD-10-PCS; 2024-05-03)
PROC: HZ2ZZZZ Detoxification Services for Substance Abuse Treatment (ICD-10-PCS; 2024-05-04)
PROC: 02H633Z Insertion of Infusion Device into Right Atrium, Percutaneous Approach (ICD-10-PCS; principal; 2024-05-09)
PROC: 5A1D70Z Performance of Urinary Filtration, Intermittent, Less than 6 Hours Per Day (ICD-10-PCS; 2024-05-09)
DX: K70.10 Alcoholic hepatitis without ascites (principal); E43 Unspecified severe protein-calorie malnutrition; G93.41 Metabolic encephalopathy; K76.7 Hepatorenal syndrome; I70.263 Atherosclerosis of native arteries of extremities with gangrene, bilateral legs; F10.231 Alcohol dependence with withdrawal delirium; I70.92 Chronic total occlusion of artery of the extremities; E87.21 Acute metabolic acidosis; N17.9 Acute kidney failure, unspecified; E87.1 Hypo-osmolality and hyponatremia; G31.2 Degeneration of nervous system due to alcohol; Z51.5 Encounter for palliative care; Z66 Do not resuscitate; S06.0X0A Concussion without loss of consciousness, initial encounter; D69.59 Other secondary thrombocytopenia; N18.9 Chronic kidney disease, unspecified; E86.0 Dehydration; I10 Essential (primary) hypertension; S01.01XA Laceration without foreign body of scalp, initial encounter; K70.0 Alcoholic fatty liver; R40.0 Somnolence; R23.0 Cyanosis; K40.90 Unilateral inguinal hernia, without obstruction or gangrene, not specified as recurrent; W01.0XXA Fall on same level from slipping, tripping and stumbling without subsequent striking against object, initial encounter; Y92.017 Garden or yard in single-family (private) house as the place of occurrence of the external cause; Z68.26 Body mass index [BMI] 26.0-26.9, adult
CPT/HCPCS: 36415; 36556; 70450; 71045; 72125; 72170; 74176; 74177; 74181; 74470; 75635; 76937; 77001; 80048; 80053; 80061; 81001; 82140; 82533; 82550; 82570; 82805; 82948; 83930; 83935; 84156; 84295; 84300; 84443; 84484; 85025; 85610; 85730; 86021; 86039; 86160; 86225; 86706; 87086; 93005; 93925; 94799; 99252; 99284; J0696; J1644; J1650; J2060; J2150; J2353; J2543; J3411; J3480; J7030; J7040; J7042; J7050; Q9967